=== PATIENT | female | born 1995 | race Caucasian/White ===

== ENCOUNTER 2019-09-22 17:23 | Emergency (ER) | payer OTHER, SELFPAY ==
[2019-09-22 17:32] VITALS: BP 120/75; PULSE 92; RESP 16; TEMP 37.1; O2SAT 99; BMI 25.8
[2019-09-22 19:06] LABS: Pregnancy Test Urine Negative (Negative)
[2019-09-22 19:30] LABS: RBC Urine None Seen (0-5/HPF)
[2019-09-22 20:03] LABS: Amorphous Sediment Urine 2+; Squamous Epithelial Cell Urine 5-10 /HPF (0-5/HPF); WBC Urine 1-5/HPF (0-5/HPF)
[2019-09-22 20:04] LABS: Bacteria Urine Few (2-10); Culture Indicated Urine Specimen Cultured; Mucus Urine 1+ (Negative)
--- NOTE | 2019-09-22 20:25 | ED.FEMALEGU ---
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 Patient denies other urinary frequency, urgency, dysuria but reports some discomfort in her flank region and headaches. Patient denies fever, chills or vomiting. Patient reports mild nausea which occurred yesterday but has resolved today. Last LMP was 09/02/19 and denies unusual or odorous vaginal discharge but increase in amount. Initially patient denies concerns for STIs but requesting GC-Chlamydia stating had some issues with her significant other in the past. Related Data Previous Rx's Medication Instructions Recorded nitrofurantoin monohyd/m-cryst 100 mg PO BID 5 Days #9 cap 09/22/19 Allergies Allergy/AdvReac Type Severity Reaction Status Date / Time No Known Drug Allergies Allergy Verified 09/22/19 17:35 Review of Systems <JORGE Bennett - Last Filed: 09/22/19 22:44> Review of Systems Narrative: General: Denies fever, chills, fatigue, malaise, sweats. HEENT: Denies sinus pain, ear pain, sore throat, difficulty swallowing, dizziness. Respiratory: Denies dyspnea, cough, wheezing, hemoptysis, sputum. Cardiovascular: Denies chest pain, palpitations, orthopnea, edema. Gastrointestinal: Reports resolved nausea. Denies vomiting, abdominal pain, diarrhea, constipation, melena. : Reports suprapubic discomfort. Denies dysuria, frequency, incontinence, hematuria, urinary retention. Musculoskeletal: Denies weakness, joint pain or bony pain. Skin: Denies rash, skin lesions, or other. Neurologic: Denies weakness, headache, numbness, change in speech, confusion, seizures, incoordination. Psychiatric: No concerning psychosocial issues. 12-point review of systems is negative except for those stated above. Patient History <JORGE Bennett - Last Filed: 09/22/19 22:44> Medical History No significant past medical history (Acute) Surgical History History of appendectomy (Acute) Smoking Status: Never smoker alcohol intake frequency: holidays/special occasions only Substance Use Type: does not use Exam <JORGE Bennett - Last Filed: 09/22/19 22:44> Narrative Exam Narrative: General appearance: well developed, well nourished, in no acute distress. Head: normocephalic, atraumatic, no scalp lesions, non-tender. ENT: Bilateral auditory canals and tympanic membranes clear. Hearing grossly intact. Nose without bleeding, purulent discharge, septal hematoma or deviation. Turbinate without erythema or swelling. Facial sinuses nontender to palpate. Mucous membrane moist, no mucosal lesion. Throat without erythema, tonsillar hypertrophy or exudate. Uvula in midline, airway patent. Neck/Thyroid: neck supple, full range of motion, no visible masses or meningeal signs. No JVD, non-tender without lymphadenopathy. Skin: no suspicious rashes, lesions over visible areas. Warm and dry and appropriate color for ethnicity. Heart: no clubbing, no cyanosis, no edema. S1 and S2 normal. RRR w/o murmurs, clicks, or bruits. Lungs: Breathing even and unlabored. No stridor. No accessory muscles used. Able to speak in full sentences. Chest: normal shape and expansion. Abdomen: Mild discomfort in suprapubic region with palpation. No abdominal rebound tenderness, non-obese, non-distended. Neurologic: alert and oriented. Cognitive exam, [employer] and PNS grossly intact on informal exam. Psych: good eye contact, normal affect. Initial Vital Signs Initial Vital Signs: Vital Signs Temperature 98.8 F 09/22/19 17:32 Pulse Rate 92 H 09/22/19 17:32 Respiratory Rate 16 09/22/19 17:32 Blood Pressure 120/75 09/22/19 17:32 Pulse Oximetry 99 09/22/19 17:32 <Michelle Mena DO - Last Filed: 09/22/19 23:37> Initial Vital Signs Initial Vital Signs: Vital Signs Temperature 98.8 F 09/22/19 17:32 Pulse Rate 92 H 09/22/19 17:32 Respiratory Rate 16 09/22/19 17:32 Blood Pressure 120/75 09/22/19 17:32 Pulse Oximetry 99 09/22/19 17:32 Scores <Carson YorkGeriBonyMICHELLE ahnP - Last Filed: 09/22/19 22:44> GCS Naveen coma scale eye opening: Spontaneous Shock coma scale verbal response: Orientated Shock coma scale motor response: Obey commands Naveen coma scale total score: 15 Course <Carson YorkJORGE Plummer - Last Filed: 09/22/19 22:44> Orders Ordered: ED Orders 09/22/19 16:40 Urine Culture Stat Urine Microscopic Stat 09/22/19 19:00 Chlamydia Gonorrhea PCR -URINE Stat Test Urine Stat Discontinued Medications Nitrofurantoin Macrocrystals (Macrobid 100 Mg Capsule) 100 mg PO NOW ONE Stop: 09/22/19 20:22 Last Admin: 09/22/19 20:39 Dose: 100 mg Documented by: BURT Vital Signs Vital signs: Vital Signs - 8 hr 09/22/19 17:32 09/22/19 21:00 Temperature 98.8 F 98.2 F Pulse Rate 92 H 90 Respiratory Rate 16 18 Blood Pressure 120/75 118/72 Pulse Oximetry 99 98 <Michelle Mena DO - Last Filed: 09/22/19 23:37> Orders Ordered: ED Orders 09/22/19 16:40 Urine Culture Stat Urine Microscopic Stat 09/22/19 19:00 Chlamydia Gonorrhea PCR -URINE Stat Test Urine Stat Discontinued Medications Nitrofurantoin Macrocrystals (Macrobid 100 Mg Capsule) 100 mg PO NOW ONE Stop: 09/22/19 20:22 Last Admin: 09/22/19 20:39 Dose: 100 mg Documented by: BURT Vital Signs Vital signs: Vital Signs - 8 hr 09/22/19 17:32 09/22/19 21:00 Temperature 98.8 F 98.2 F Pulse Rate 92 H 90 Respiratory Rate 16 18 Blood Pressure 120/75 118/72 Pulse Oximetry 99 98 MDM - Female Genitourinary <Carson YorkJORGE Plummer - Last Filed: 09/22/19 22:44> Differential Diagnosis Differential diagnosis: Likely urinary tract infection, cystitis and other (gonorrhea, chlamydia) Medical Records Attestation: I reviewed the patient's medical records. Lab Data Attestation: I reviewed the patient's lab results. Labs: Lab Results 09/22/19 09/22/19 09/22/19 Range/Units 16:40 19:00 19:00 Urine RBC None seen (0-5/HPF) Urine WBC 1-5/hpf (0-5/HPF) Ur Squamous Epith Cells 5-10 /hpf H (0-5/HPF) Amorphous Sediment 2+ Urine Bacteria Few (2-10) H (None) Urine Mucus 1+ H (Negative) Ur Culture Indicated? Specimen cultured Urine Test Negative (Negative) Ur Chlamydia DNA (PCR) Not detected N gonorrhoeae DNA (PCR) Not detected Urine Dip Bedside Urine Glucose Negative Bedside Urine Bilirubin - Negative Bedside Urine Ketone - Negative Urine Specific [place] 1.010 Bedside Urine Occult Blood - Negative Bedside Urine pH 7.0 Bedside Urine Protein +/- 15 Bedside Urine Urobilinogen +/- 1mg Bedside Urine Nitrite - Negative Bedside Urine Leukocytes +/- 15 Esterase MDM Narrative Medical decision making narrative: This is a 24 year female who presents to ED with suprapubic pressure discomfort and he back pain for last 3 days without fever, chills, vomiting. Patient states feels like early UTI symptoms when she had about a year ago. Urine Hcg was negative and POC UA indicates negative urine nitrite and positive for mild urine leukocytes esterase. Urine pending for culture. Patient denies unusual vaginal discharge but has experience marital issues with her spouse and requesting chlamydia and gonorrhea which were negative. Patient was medicated with nitrofurantoin 1st dose before discharged to home and Rx has been transmitted to [facility] pharmacy. Patient declined Pyridium at this time and [id number] ibuprofen has been helpful. Return precautions were discussed with the patient and patient verbalized understanding and agrees with the treatment plan. <Michelle Mena DO - Last Filed: 09/22/19 23:37> Lab Data Labs: Lab Results 09/22/19 09/22/19 09/22/19 Range/Units 16:40 19:00 19:00 Urine RBC None seen (0-5/HPF) Urine WBC 1-5/hpf (0-5/HPF) Ur Squamous Epith Cells 5-10 /hpf H (0-5/HPF) Amorphous Sediment 2+ Urine Bacteria Few (2-10) H (None) Urine Mucus 1+ H (Negative) Ur Culture Indicated? Specimen cultured Urine Test Negative (Negative) Ur Chlamydia DNA (PCR) Not detected N gonorrhoeae DNA (PCR) Not detected Urine Dip Bedside Urine Glucose Negative Bedside Urine Bilirubin - Negative Bedside Urine Ketone - Negative Urine Specific [place] 1.010 Bedside Urine Occult Blood - Negative Bedside Urine pH 7.0 Bedside Urine Protein +/- 15 Bedside Urine Urobilinogen +/- 1mg Bedside Urine Nitrite - Negative Bedside Urine Leukocytes +/- 15 Esterase Discharge Plan Departure Patient Disposition: Home Clinical Impression: Urinary tract infection Qualifiers: Urinary tract infection type: site unspecified Hematuria presence: without hematuria Qualified Code(s): N39.0 - Urinary tract infection, site not specified Discharge Date/Time: 09/22/19 21:00 Instructions: DI for Urinary Tract Infection (UTI) Activity Restrictions/Additional Instructions: You have been diagnosed with [UTI and urine culture is pending at this time. We also sent out GC and chlamydia urine culture and you'll get a phone call if these are positive and you need a treatment with antibiotic medication.]. What to do: *Take your medications as directed. Nitrofurantoin is twice a day dose for next 5 days. You were treated with 1st dose while in ED. *Follow up with your primary care provider in 2-3 days, call for an appointment. Let them know you were seen in the ED and that we asked you to be seen in follow up. *Return to ED if you have any new, worsening, or concerning symptoms, such as [fever, back pain, unable to tolerate fluids, chest pain, breathing difficulty, pelvic discomfort, unusual vaginal discharge or lesions]. Prescriptions: New nitrofurantoin monohyd/m-cryst 100 mg capsule 100 mg PO BID 5 Days Qty: 9 RF: 0 Referrals: Landon Porter [Primary Care Provider] -
[2019-09-22] MEDS: NITROFURANTOIN ER 100 MG CAPSULE PO (20:39)
[2019-09-22 21:00] VITALS: BP 118/72; PULSE 90; RESP 18; TEMP 36.8; O2SAT 98
[2019-09-22 22:00] LABS: Urine N gonorrhoeae NOT DETECTED
[2019-09-22 22:24] LABS: Urine Chlamydia NOT DETECTED
== END 2019-09-22 21:00 | disposition home or self-care (01) ==
PROVIDERS: Emergency Medicine; Emergency Provider Nurse Practitioner Family; Family Provider Student in an Organized Health Care Education/Training Program; PCP Student in an Organized Health Care Education/Training Program
DX: N39.0 Urinary tract infection, site not specified (principal)
CPT/HCPCS: 36415; 81003; 81015; 81025; 87077; 87086; 87491; 87591; 99281; 99283